=== PATIENT | male | born 1965 | race Caucasian/White ===

== ENCOUNTER 2017-06-03 11:57 | Emergency (ER) | payer MEDICAID, OTHER ==
[~2017-06-03] VITALS: Ht 167.6 cm; Wt 71.3 kg
[~2017-06-03 11:57] MED LIST: AMOX500C25 PO; IBUP-2213 PO
[2017-06-03 12:00] VITALS: BP 154/99
--- NOTE | 2017-06-03 12:04 | NUR ---
PT AMBULATED TO BED 1.
--- NOTE | 2017-06-03 12:10 | NUR ---
PATIENT PRESENTS TO ED WITH 51M BIB SELF C/O LOWER BACK PAIN X 2016, WORSENING X 9 DAYS. PT STATES NO RECENT TRAUMA OR INJURY TO BACK, BUT PT STATES HE "HELPED A FRIEND LIFT A CAMPER SHELL". HX: PT DENIES RX: PT DENIES; DENIES N/V/D; SKIN IS PINK/WARM/DRY; AAOX4 WITH EVEN AND STEADY GAIT; LUNGS CLEAR BL; HR EVEN AND REGULAR; PT DENIES ANY FEVER, CP, SOB, OR COUGH AT THIS TIME; PATIENT STATES PAIN OF 8/10 AT THIS TIME; VSS; PATIENT POSITIONED FOR COMFORT; HOB ELEVATED; BEDRAILS UP X2; BED DOWN. ER MD MADE AWARE OF PT STATUS.
--- NOTE | 2017-06-03 12:24 | NUR ---
DR BARROSO EVALUATING AAO PT AT BEDSIDE
[2017-06-03] MEDS ORDERED: KETOROLAC 60 MG/2 ML VIAL IM ONE (12:35)
[2017-06-03 12:55] VITALS: BP 148/96
--- NOTE | 2017-06-03 12:55 | NUR ---
Patient discharged with v/s stable. Written and verbal after care instructions given and explained. Patient alert, oriented and verbalized understanding of instructions. Ambulatory with steady gait. All questions addressed prior to discharge. ID band removed. Patient advised to follow up with PMD. Rx of ROBAXIN, MOTRIN given. Patient educated on indication of medication including possible reaction and side effects. Opportunity to ask questions provided and answered.
== END 2017-06-03 12:55 | disposition home or self-care (01) ==
LOC: MED 11:57
DX: M54.5 Low back pain (principal)
CPT/HCPCS: 96372; 99283; J1885

== ENCOUNTER 2018-03-05 11:26 | Emergency (ER) | payer OTHER ==
[~2018-03-05] VITALS: Ht 170.2 cm; Wt 71.4 kg
--- NOTE | 2018-03-05 11:33 | NUR ---
PT AMBULATES TO BED 3
[2018-03-05 11:34] VITALS: BP 143/102
--- NOTE | 2018-03-05 11:41 | NUR ---
PATIENT PRESENTS TO ED W/ C/O HIGH BP AND INCREASE HEART RATE; UPON ARRIVAL TO ER BP OF 146/92 HR OF 104. DENIES CP/SOB/[place]/DIZZINESS; SKIN IS PINK/WARM/DRY; AAOX4 WITH EVEN AND STEADY GAIT; PATIENT POSITIONED FOR COMFORT; HOB ELEVATED; BEDRAILS UP X2; BED DOWN. ER MD MADE AWARE OF PT STATUS.
--- NOTE | 2018-03-05 11:55 | NUR ---
Patient being evaluated by physician at bedside.
[2018-03-05] MEDS ORDERED: NACL 0.9% 1,000 ML IV SCH (11:57)
[2018-03-05] MEDS ORDERED: LORazepam 2 MG/ML VIAL IVP ONE (12:00)
[2018-03-05] MEDS ORDERED: LORazepam 2 MG/ML VIAL ONE (12:15)
[2018-03-05 12:24] LABS: BASOPHILS % (AUTO) 0.4 % (0.0-2.0); EOSINOPHILS # (AUTO) 0.1 K/uL (0-0.4); EOSINOPHILS % (AUTO) 0.9 % (0.0-4.0); HEMATOCRIT 48.9 % (36-52); HEMOGLOBIN 16.7 g/dL (12.0-18.0); LYMPHOCYTES # (AUTO) 1.9 K/uL (2.0-11.5); LYMPHOCYTES % (AUTO) 25.1 % (20.5-51.1); MEAN CORPUSCULAR HEMOGLOBIN 31 pg (27-31); MEAN CORPUSCULAR HGB CONC 34 g/dL (33-37); MEAN CORPUSCULAR VOLUME 91.7 fL (80-94); MONOCYTES # (AUTO) 0.6 K/uL (0.8-1.0); MONOCYTES % (AUTO) 7.3 % (1.7-9.3); NEUTROPHILS # (AUTO) 5.1 K/uL (1.8-7.7); NEUTROPHILS % (AUTO) 66.3 % (42.2-75.2); PLATELET COUNT (AUTO) 232 K/uL (140-450); RED BLOOD CELL COUNT(AUTO) 5.34 MIL/uL (4.20-6.10); RED CELL DISTRIBUTION WIDTH 12.8 % (11.6-13.7); WHITE BLOOD COUNT (AUTO) 7.7 K/uL (4.8-10.8)
--- NOTE | 2018-03-05 12:47 | NUR ---
XRAY AT BEDSIDE
--- NOTE | 2018-03-05 12:48 | NUR ---
xray at bedside.
[2018-03-05 12:57] LABS: ALBUMIN 3.4 g/dL (3.4-5.0); ANION GAP 11.9 (8-16); CARBON DIOXIDE 27.7 mmol/L (21-32); CREATININE 1.1 mg/dL (0.7-1.3); POTASSIUM 3.6 mmol/L (3.5-5.1); TOTAL BILIRUBIN 0.3 mg/dL (0.0-1.0)
[2018-03-05 12:58] LABS: PROTHROMBIN TIME 9.8 secs (10.8-13.4)
[2018-03-05 14:10] VITALS: BP 135/75
--- NOTE | 2018-03-05 14:10 | NUR ---
Patient discharged with v/s stable. Written and verbal after care instructions given and explained. Patient alert, oriented and verbalized understanding of instructions. Ambulatory with steady gait. All questions addressed prior to discharge. ID band removed. Patient advised to follow up with PMD. Opportunity to ask questions provided and answered.
== END 2018-03-05 14:10 | disposition home or self-care (01) ==
LOC: MED 11:26
DX: I10 Essential (primary) hypertension (principal); R11.0 Nausea; Z88.6 Allergy status to analgesic agent; Z88.1 Allergy status to other antibiotic agents
CPT/HCPCS: 36415; 71045; 80053; 83880; 84484; 85025; 85610; 85730; 93005; 96374; 99285; J2060; 96372

== ENCOUNTER 2018-06-17 14:01 | Emergency (ER) | payer OTHER ==
[~2018-06-17] VITALS: Ht 170.2 cm; Wt 72.8 kg
[2018-06-17 14:03] VITALS: BP 130/93
[2018-06-17] MEDS ORDERED: DEXAMETHASONE 10 MG/ML VIAL IM ONE (15:25)
[2018-06-17] MEDS ORDERED: ALBUTEROL SULFATE/IPRATROPIU 3 ML SOL IH ONE (15:25)
[2018-06-17] MEDS ORDERED: cefTRIAXone 1,000 MG in LIDOCAINE 1% ***ER ONLY *** 2.1 ML IM ONE (15:25)
[2018-06-17] MEDS ORDERED: LEVOFLOXACIN 500 MG TAB PO ONE (15:25)
[2018-06-17] MEDS ORDERED: cefTRIAXone 1,000 MG VIAL ONE (15:49)
[2018-06-17] MEDS ORDERED: LIDOCAINE MPF 1% 5mL VIAL ONE (15:50)
[2018-06-17 19:28] VITALS: BP 135/89
== END 2018-06-17 19:28 | disposition home or self-care (01) ==
LOC: MED 14:01
DX: J40 Bronchitis, not specified as acute or chronic (principal); J06.9 Acute upper respiratory infection, unspecified; I10 Essential (primary) hypertension; F17.200 Nicotine dependence, unspecified, uncomplicated; Z79.899 Other long term (current) drug therapy
CPT/HCPCS: 71045; 94640; 96372; 99283; J0696; J1100; J2001; J7620; Q0092

== ENCOUNTER 2018-10-01 10:57 | Emergency (ER) | payer OTHER ==
[~2018-10-01] VITALS: Ht 167.6 cm; Wt 70.8 kg
[2018-10-01 11:08] VITALS: BP 126/85
--- NOTE | 2018-10-01 11:14 | NUR ---
PATIENT AMBULATED TO BED 8
--- NOTE | 2018-10-01 11:15 | NUR ---
BIB SELF. AAO X4 PRESENTS FOR WOUND CHECK S/P SKIN TAG REMOVAL NEAR L EYE ON WEDNESDAY BY [employer] LINE [employer]ER. PT HAS LIGHT GREEN DRAINAGE NOTED TO L EYE. DENIES PAIN, BLURRED VISION. AFEBRILE. HOB UP. BED SIDE RAILS UP X1. ON LOW BED POSITION, LOCKED. ER MADE AWARE OF PT STATUS.
[2018-10-01 12:10] VITALS: BP 130/86
--- NOTE | 2018-10-01 12:11 | NUR ---
Patient discharged with v/s stable. Written and verbal after care instructions given and explained. Patient alert, oriented and verbalized understanding of instructions. Ambulatory with steady gait. All questions addressed prior to discharge. ID band removed. Patient advised to follow up with PMD. Rx of BLEPH 10 & BACTRIM given. Patient educated on indication of medication including possible reaction and side effects. Opportunity to ask questions provided and answered.
== END 2018-10-01 11:14 | disposition home or self-care (01) ==
LOC: MED 10:57
DX: H00.036 Abscess of eyelid left eye, unspecified eyelid (principal); I10 Essential (primary) hypertension; Z88.1 Allergy status to other antibiotic agents
CPT/HCPCS: 99283

== ENCOUNTER 2018-10-21 12:40 | Emergency (ER) | payer OTHER ==
[~2018-10-21] VITALS: Ht 170.2 cm; Wt 68.5 kg
[2018-10-21 13:04] VITALS: BP 110/76
--- NOTE | 2018-10-21 13:40 | NUR ---
PATIENT PRESENTS TO ED WITH C/O LLQ PAIN X 4-5 WEEKS. PT STATES PAIN RADIATES TO LT LOWER BACK. DENIES NAUSEA/VOMITING/ FEVER. +DIARRHEA. AFEBRILE AT THIS TIME. PT DENIES ANY URINARY ISSUES. PATIENT STATES PAIN OF 5/10 AT THIS TIME; VSS; PATIENT POSITIONED FOR COMFORT. BEDRAILS UP X1; BED DOWN. ER MD TO EVALUATE PT.
[2018-10-21] MEDS ORDERED: NACL 0.9% 1,000 ML IV ONE (14:04)
[2018-10-21] MEDS ORDERED: NACL 0.9% 1,000 ML IV SCH (14:04)
[2018-10-21] MEDS ORDERED: KETOROLAC 30 MG/ML VIAL IVP ONE (14:05)
[2018-10-21] MEDS ORDERED: MORPHINE SULFATE 2 MG/ML SYR IVP ONE (14:05)
[2018-10-21 14:27] LABS: APPEARANCE,URINE CLEAR (CLEAR); BILIRUBIN,URINE 1+ (NEGATIVE); BLOOD, URINE NEGATIVE (NEGATIVE); COLOR,URINE YELLOW (YELLOW); LEUKOCYTE ESTERASE ,URINE NEGATIVE (NEGATIVE); NITRITE, URINE NEGATIVE (NEGATIVE); UGLUCOSE NEGATIVE (NEGATIVE)
[2018-10-21 14:28] LABS: BASOPHILS % (AUTO) 0.6 % (0.0-2.0); EOSINOPHILS # (AUTO) 0.1 K/uL (0-0.4); HEMATOCRIT 44.8 % (36-52); HEMOGLOBIN 15.2 g/dL (12.0-18.0); LYMPHOCYTES # (AUTO) 1.9 K/uL (2.0-11.5); LYMPHOCYTES % (AUTO) 23.2 % (20.5-51.1); MEAN CORPUSCULAR HEMOGLOBIN 32 pg (27-31); MEAN CORPUSCULAR HGB CONC 34 g/dL (33-37); MEAN CORPUSCULAR VOLUME 92.9 fL (80-94); MONOCYTES # (AUTO) 0.5 K/uL (0.8-1.0); MONOCYTES % (AUTO) 6.2 % (1.7-9.3); NEUTROPHILS # (AUTO) 5.6 K/uL (1.8-7.7); PLATELET COUNT (AUTO) 243 K/uL (140-450); RED BLOOD CELL COUNT(AUTO) 4.82 MIL/uL (4.20-6.10); RED CELL DISTRIBUTION WIDTH 13.6 % (11.6-13.7); WHITE BLOOD COUNT (AUTO) 8.1 K/uL (4.8-10.8)
[2018-10-21 14:47] LABS: ALBUMIN 3.1 g/dL (3.4-5.0); ANION GAP 10.4 (8-16); CARBON DIOXIDE 26.4 mmol/L (21-32); POTASSIUM 3.8 mmol/L (3.5-5.1); TOTAL BILIRUBIN 0.3 mg/dL (0.0-1.0)
--- NOTE | 2018-10-21 15:00 | NUR ---
PT TRANSPORTED TO CT VIA W/C BY RESOURCE ANALYST
--- NOTE | 2018-10-21 15:12 | NUR ---
PT BACK FROM CT SCAN.
[2018-10-21] MEDS ORDERED: GABA300C PO (16:43)
[2018-10-21] MEDS ORDERED: ATOR10TA51 PO (16:43)
[2018-10-21] MEDS ORDERED: ATEN50TA8 PO (16:43)
--- NOTE | 2018-10-21 16:43 | NUR ---
Dr. Hall Oh evaluating patient at bedside.
[2018-10-21] MEDS ORDERED: DEXT 5% /NACL 0.9% 1,000 ML IV SCH (16:50)
[2018-10-21] MEDS ORDERED: ONDANSETRON 4 MG/2 ML VIAL IVP PRN (16:50)
[2018-10-21] MEDS ORDERED: MORPHINE SULFATE 2 MG/ML SYR IVP PRN (16:50)
--- NOTE | 2018-10-21 17:26 | NUR ---
Dr. Boswell re-evaluating patient at bedside.
[2018-10-21 17:42] VITALS: BP 107/66
--- NOTE | 2018-10-21 17:43 | NUR ---
Patient discharged with v/s stable. Written and verbal after care instructions given and explained. Patient alert, oriented and verbalized understanding of instructions. Ambulatory with steady gait. All questions addressed prior to discharge. ID band removed. Patient advised to follow up with PMD. Rx of CIPRO given. Patient educated on indication of medication including possible reaction and side effects. Opportunity to ask questions provided and answered. PT STATES HE WALKED TO ER AND WILL BE WALKING HOME, PT AMBULATORY STEADY GAIT, AWAKE AND ALERT. PT ADVISED NOT TO DRIVE.
== END 2018-10-21 17:43 | disposition home or self-care (01) ==
LOC: MED 12:40
DX: K56.2 Volvulus (principal); I10 Essential (primary) hypertension; E78.00 Pure hypercholesterolemia, unspecified; Z79.899 Other long term (current) drug therapy; Z88.1 Allergy status to other antibiotic agents
CPT/HCPCS: 36415; 74176; 80053; 81003; 82150; 83690; 84484; 85025; 93005; 96374; 96375; 99284; J1885; J2270; J7030

== ENCOUNTER 2019-11-05 14:58 | Emergency (ER) | payer OTHER ==
[~2019-11-05] VITALS: Ht 167.6 cm; Wt 72.6 kg
[~2019-11-05 14:58] MED LIST changes: -AMOX500C25 PO; +ATEN50TA8 PO; +ATOR10TA51 PO; +GABA300C PO; -IBUP-2213 PO
[2019-11-05 15:07] VITALS: BP 122/82
--- NOTE | 2019-11-05 15:10 | NUR ---
PT AMBULATED TO ER BED 01
--- NOTE | 2019-11-05 15:15 | NUR ---
c/o r groin pain 12/31 x 1 day. pt states it feels like it is having a spasm. pt reports this same type of pain "many years ago", but hasnt had this happen in a long time. no obvious injury/deformity noted to the leg, no redness/warmth noted.
--- NOTE | 2019-11-05 15:30 | NUR ---
kerry ochoa at bedside
--- NOTE | 2019-11-05 16:00 | NUR ---
pt sitting in chair at bedside, no new needs at this time
[2019-11-05 16:46] VITALS: BP 122/87
--- NOTE | 2019-11-05 16:47 | NUR ---
Patient discharged with v/s stable. Written and verbal after care instructions given and explained. Patient alert, oriented and verbalized understanding of instructions. Ambulatory with steady gait. All questions addressed prior to discharge. ID band removed. Patient advised to follow up with PMD. Rx of tramadol & flexeril given. Patient educated on indication of medication including possible reaction and side effects. Opportunity to ask questions provided and answered.
== END 2019-11-05 16:47 | disposition home or self-care (01) ==
LOC: MED 14:58
DX: S39.011A Strain of muscle, fascia and tendon of abdomen, initial encounter (principal); I10 Essential (primary) hypertension; F17.200 Nicotine dependence, unspecified, uncomplicated; Z88.1 Allergy status to other antibiotic agents; Z79.899 Other long term (current) drug therapy; X58.XXXA Exposure to other specified factors, initial encounter; Y93.89 Activity, other specified; Y92.89 Other specified places as the place of occurrence of the external cause; Y99.8 Other external cause status
CPT/HCPCS: 81002; 99283

== ENCOUNTER 2020-05-08 10:04 | Emergency (ER) | payer OTHER ==
[~2020-05-08] VITALS: Ht 167.6 cm; Wt 73.0 kg
[2020-05-08 10:41] VITALS: BP 121/66
[2020-05-08] MEDS ORDERED: KETOROLAC 30 MG/ML VIAL IM STA (10:44)
[2020-05-08] MEDS ORDERED: methocarbamoL 500 MG TAB PO STA (10:44)
--- NOTE | 2020-05-08 10:44 | NUR ---
PT BEING EVALUATED IN TRIAGE BY DR. LAM.
[2020-05-08] MEDS ORDERED: LORazepam 1 MG TAB PO ONE (10:45)
[2020-05-08 11:29] VITALS: BP 121/66
--- NOTE | 2020-05-08 11:29 | NUR ---
Patient discharged with v/s stable. Written and verbal after care instructions given and explained. Patient alert, oriented and verbalized understanding of instructions. Ambulatory with steady gait. All questions addressed prior to discharge. ID band removed. Patient advised to follow up with PMD. Rx of Robaxin 500mg and Medrol Dose Pack given. Patient educated on indication of medication including possible reaction and side effects. Opportunity to ask questions provided and answered.
== END 2020-05-08 11:29 | disposition home or self-care (01) ==
LOC: MED 10:04
DX: M54.40 Lumbago with sciatica, unspecified side (principal); I10 Essential (primary) hypertension
CPT/HCPCS: 96372; 99283; J1885

== ENCOUNTER 2020-05-12 09:28 | Emergency (ER) | payer OTHER ==
[~2020-05-12] VITALS: Ht 167.6 cm; Wt 73.0 kg
[2020-05-12 09:34] VITALS: BP 160/95
--- NOTE | 2020-05-12 09:39 | NUR ---
PATIENT TRIAGED. WAITING IN LOBBY.
[2020-05-12 10:46] VITALS: BP 160/95
== END 2020-05-12 10:47 | disposition home or self-care (01) ==
LOC: MED 09:28
DX: M54.5 Low back pain (principal); G89.29 Other chronic pain; I10 Essential (primary) hypertension; E78.5 Hyperlipidemia, unspecified; Z79.899 Other long term (current) drug therapy; Z88.1 Allergy status to other antibiotic agents
CPT/HCPCS: 99283

== ENCOUNTER 2022-07-01 12:06 | Emergency (ER) | payer OTHER ==
[~2022-07-01] VITALS: Ht 167.6 cm; Wt 66.7 kg
[2022-07-01 12:13] VITALS: BP 151/98
--- NOTE | 2022-07-01 13:28 | NUR ---
pt ambulated to bed 09
--- NOTE | 2022-07-01 13:35 | NUR ---
DR HOPE AT BEDSIDE.
[2022-07-01] MEDS ORDERED: KETOROLAC 15 MG/ML VIAL IVP ONE (13:40)
--- NOTE | 2022-07-01 13:57 | NUR ---
Pt taken to CT
--- NOTE | 2022-07-01 13:59 | NUR ---
Assumed care of pt from PABLO Vega
--- NOTE | 2022-07-01 14:01 | NUR ---
56M PRESENTS TO ED WITH C/O LLQ PAIN SINCE LAST NIGHT. DENIES N/V/D/SOB/CP PMH:HTN ALLERGIES:DENIES
--- NOTE | 2022-07-01 14:10 | NUR ---
PT RETURNED FROM cT. gIVEN PAIN MEDICATION FOR 6/10 PAIN IN ABDOMEN. NON-RADIATING. NON-PHARM INTERVENTIONS INEFFECTIVE
[2022-07-01 14:24] LABS: BASOPHILS % (AUTO) 0.3 % (0.0-2.0); EOSINOPHILS % (AUTO) 0.2 % (0.0-4.0); HEMATOCRIT 46.4 % (36-52); HEMOGLOBIN 15.9 g/dL (12.0-18.0); LYMPHOCYTES # (AUTO) 1.5 K/uL (2.0-11.5); LYMPHOCYTES % (AUTO) 9.9 % (20.5-51.1); MEAN CORPUSCULAR HEMOGLOBIN 33 pg (27-31); MEAN CORPUSCULAR HGB CONC 34 g/dL (33-37); MEAN CORPUSCULAR VOLUME 94.9 fL (80-94); MONOCYTES # (AUTO) 1.1 K/uL (0.8-1.0); MONOCYTES % (AUTO) 7.4 % (1.7-9.3); NEUTROPHILS # (AUTO) 12.2 K/uL (1.8-7.7); NEUTROPHILS % (AUTO) 82.2 % (42.2-75.2); PLATELET COUNT (AUTO) 261 K/uL (140-450); RED BLOOD CELL COUNT(AUTO) 4.89 MIL/uL (4.20-6.10); RED CELL DISTRIBUTION WIDTH 13.9 % (11.6-13.7); WHITE BLOOD COUNT (AUTO) 14.8 K/uL (4.8-10.8)
[2022-07-01 14:47] LABS: ALBUMIN 3.8 g/dL (3.4-5.0); ANION GAP 15.1 (8-16); CARBON DIOXIDE 25.7 mmol/L (21-32); CREATININE 1.1 mg/dL (0.6-1.3); POTASSIUM 3.8 mmol/L (3.5-5.1); TOTAL BILIRUBIN 0.6 mg/dL (0.0-1.0)
[2022-07-01 14:49] LABS: APPEARANCE,URINE CLEAR (CLEAR); BILIRUBIN,URINE NEGATIVE (NEGATIVE); BLOOD, URINE MODERATE (NEGATIVE); COLOR,URINE YELLOW (YELLOW); LEUKOCYTE ESTERASE ,URINE NEGATIVE (NEGATIVE); NITRITE, URINE NEGATIVE (NEGATIVE); UGLUCOSE NEGATIVE (NEGATIVE)
[2022-07-01 15:06] LABS: RBC,URINE 0-5 /HPF (0-5); WBC,URINE 0-5 /HPF (0-5)
[2022-07-01 15:07] LABS: OTHER CASTS, URINE None Seen /LPF (None Seen)
[2022-07-01] MEDS ORDERED: ACET-8905 PO (15:15)
[2022-07-01] MEDS ORDERED: ONDA-188 PO (15:15)
[2022-07-01] MEDS ORDERED: TAMS0.4C96 PO (15:15)
[2022-07-01] MEDS ORDERED: IBUP-2213 PO (15:15)
[2022-07-01 15:28] VITALS: BP 147/95
--- NOTE | 2022-07-01 15:29 | NUR ---
Patient discharged with v/s stable. Written and verbal after care instructions given and explained. Patient alert, oriented and verbalized understanding of instructions. Ambulatory with steady gait. All questions addressed prior to discharge. ID band removed. Patient advised to follow up with PMD. Rx of Ibuprofen/flomax/zofran/norco given. Patient educated on indication of medication including possible reaction and side effects. Opportunity to ask questions provided and answered.
== END 2022-07-01 15:28 | disposition home or self-care (01) ==
LOC: MED 12:06
DX: I10 Essential (primary) hypertension (principal); F17.290 Nicotine dependence, other tobacco product, uncomplicated; R11.2 Nausea with vomiting, unspecified; R10.9 Unspecified abdominal pain; K21.9 Gastro-esophageal reflux disease without esophagitis; Z71.6 Tobacco abuse counseling; Z88.1 Allergy status to other antibiotic agents; Z79.899 Other long term (current) drug therapy
CPT/HCPCS: 36415; 74176; 80053; 81001; 85025; 96374; 99285; J1885; 81003; 99284

== ENCOUNTER 2022-10-19 11:14 | Emergency (ER) | payer OTHER ==
[~2022-10-19] VITALS: Ht 167.6 cm; Wt 66.7 kg
[~2022-10-19 11:14] MED LIST changes: +ACET-8905 PO; +IBUP-2213 PO; +ONDA-188 PO; +TAMS0.4C96 PO
[2022-10-19 11:24] VITALS: BP 125/90
--- NOTE | 2022-10-19 11:29 | NUR ---
pt ambulatory to bed 05
--- NOTE | 2022-10-19 11:42 | NUR ---
57YO M PRESENTS W/DIARRHEA AND NAUSEA X 5DAYS, INTERMITTENT ABD PAIN, PT STATES STOOL IS YELLOW IN COLOR W/ODOR, DENIES BLOODY STOOL, VOMITING, CHANGE IN DIET. SAFETY MAINTAINED. HX: HTN ALLERGIES: LEVOFLOXACIN
--- NOTE | 2022-10-19 12:00 | NUR ---
MD RINCON AT BEDSIDE FOR EVALUATION
[2022-10-19] MEDS ORDERED: IBUP-2213 PO (12:11)
[2022-10-19] MEDS ORDERED: SULF-59 PO (12:11)
[2022-10-19 12:24] VITALS: BP 121/84
--- NOTE | 2022-10-19 12:24 | NUR ---
Patient discharged with v/s stable. Written and verbal after care instructions given and explained. Patient alert, oriented and verbalized understanding of instructions. Ambulatory with steady gait. All questions addressed prior to discharge. ID band removed. Patient advised to follow up with PMD. Rx IBUPROFEN, BACTRIM of given. Opportunity to ask questions provided and answered.
--- NOTE | 2022-10-19 12:25 | NUR ---
The patient's care was reviewed and supervised by Silvia Chaves, RN, RN.
== END 2022-10-19 12:24 | disposition home or self-care (01) ==
LOC: MED 11:14
DX: R19.7 Diarrhea, unspecified (principal); R10.30 Lower abdominal pain, unspecified; R11.0 Nausea; K21.9 Gastro-esophageal reflux disease without esophagitis; I10 Essential (primary) hypertension; F17.200 Nicotine dependence, unspecified, uncomplicated; Z72.89 Other problems related to lifestyle; Z88.8 Allergy status to other drugs, medicaments and biological substances; Z79.899 Other long term (current) drug therapy
CPT/HCPCS: 99283

== ENCOUNTER 2023-05-08 14:49 | Emergency (ER) | payer OTHER ==
[~2023-05-08] VITALS: Ht 167.6 cm; Wt 70.8 kg
[~2023-05-08 14:49] MED LIST changes: +SULF-59 PO
[2023-05-08 15:14] VITALS: BP 117/79; PULSE 123; RESP 20; TEMP 97.8; O2SAT 100
[2023-05-08 15:39] LABS: BASOPHILS % (AUTO) 0.2 % (0.0-2.0); EOSINOPHILS % (AUTO) 0.1 % (0.0-4.0); HEMATOCRIT 47.2 % (36-52); HEMOGLOBIN 15.9 g/dL (12.0-18.0); LYMPHOCYTES # (AUTO) 1.1 K/uL (2.0-11.5); LYMPHOCYTES % (AUTO) 7.4 % (20.5-51.1); MEAN CORPUSCULAR HEMOGLOBIN 32 pg (27-31); MEAN CORPUSCULAR HGB CONC 34 g/dL (33-37); MEAN CORPUSCULAR VOLUME 94.5 fL (80-94); MONOCYTES # (AUTO) 0.8 K/uL (0.8-1.0); MONOCYTES % (AUTO) 5.5 % (1.7-9.3); NEUTROPHILS # (AUTO) 12.9 K/uL (1.8-7.7); NEUTROPHILS % (AUTO) 86.8 % (42.2-75.2); PLATELET COUNT (AUTO) 226 K/uL (140-450); RED BLOOD CELL COUNT(AUTO) 4.99 MIL/uL (4.20-6.10); RED CELL DISTRIBUTION WIDTH 13.8 % (11.6-13.7); WHITE BLOOD COUNT (AUTO) 14.9 K/uL (4.8-10.8)
[2023-05-08] MEDS ORDERED: ACETAMINOPHEN EXTRA STRENGTH 500 MG TAB PO ONE (15:40)
[2023-05-08] MEDS ORDERED: NACL 0.9% 1,000 ML IV ONE ×2 (15:40→17:30)
[2023-05-08 15:48] LABS: ANION GAP 16.9 (8-16); CARBON DIOXIDE 22.9 mmol/L (21-32); CREATININE 1.1 mg/dL (0.6-1.3); POTASSIUM 4.8 mmol/L (3.5-5.1)
[2023-05-08 15:54] LABS: ALBUMIN 3.5 g/dL (3.4-5.0); TOTAL BILIRUBIN 0.5 mg/dL (0.0-1.0); TOTAL PROTEIN, SERUM 7.1 g/dL (6.4-8.2)
[2023-05-08] MEDS ORDERED: LIDOCAINE 5% 1 EA PATCH TP ONE (16:40)
[2023-05-08] MEDS ORDERED: LIDOCAINE MPF 1% 10 MG/ML VIAL INJ ONE (16:40)
[2023-05-08] MEDS ORDERED: ACETAMINOPHEN EXTRA STRENGTH 500 MG TAB ONE (16:46)
[2023-05-08] MEDS ORDERED: ACET-10509 PO (18:08)
[2023-05-08 18:50] VITALS: BP 117/79; PULSE 107; RESP 20; TEMP 97.8; O2SAT 100
== END 2023-05-08 18:51 | disposition home or self-care (01) ==
LOC: MED 14:49
DX: S02.2XXA Fracture of nasal bones, initial encounter for closed fracture (principal); S00.03XA Contusion of scalp, initial encounter; S80.212A Abrasion, left knee, initial encounter; R55 Syncope and collapse; E86.0 Dehydration; R42 Dizziness and giddiness; M25.511 Pain in right shoulder; M79.642 Pain in left hand; M54.2 Cervicalgia; K21.9 Gastro-esophageal reflux disease without esophagitis; E78.5 Hyperlipidemia, unspecified; I10 Essential (primary) hypertension; Z79.899 Other long term (current) drug therapy; Z79.1 Long term (current) use of non-steroidal anti-inflammatories (NSAID); Z79.2 Long term (current) use of antibiotics; Z88.1 Allergy status to other antibiotic agents; W10.8XXA Fall (on) (from) other stairs and steps, initial encounter; Y92.89 Other specified places as the place of occurrence of the external cause; Y93.89 Activity, other specified; Y99.8 Other external cause status
CPT/HCPCS: 12013; 36415; 70450; 70486; 71045; 72125; 80053; 83880; 84484; 85025; 93005; 96360; 96361; 99285; J2001; J7030

== ENCOUNTER 2023-08-30 08:58 | Emergency (ER) | payer OTHER ==
[~2023-08-30] VITALS: Ht 167.6 cm; Wt 69.9 kg
[~2023-08-30 08:58] MED LIST changes: +ACET-10509 PO
[2023-08-30 09:01] VITALS: BP 163/87; PULSE 78; RESP 20; TEMP 96.3; O2SAT 98
[2023-08-30 10:52] LABS: BASOPHILS % (AUTO) 0.3 % (0.0-2.0); EOSINOPHILS # (AUTO) 0.1 K/uL (0-0.4); EOSINOPHILS % (AUTO) 0.6 % (0.0-4.0); HEMATOCRIT 53.1 % (36-52); HEMOGLOBIN 18.4 g/dL (12.0-18.0); LYMPHOCYTES # (AUTO) 1.8 K/uL (2.0-11.5); MEAN CORPUSCULAR HEMOGLOBIN 33 pg (27-31); MEAN CORPUSCULAR HGB CONC 35 g/dL (33-37); MEAN CORPUSCULAR VOLUME 94.3 fL (80-94); MONOCYTES # (AUTO) 0.8 K/uL (0.8-1.0); NEUTROPHILS # (AUTO) 10.2 K/uL (1.8-7.7); NEUTROPHILS % (AUTO) 79.1 % (42.2-75.2); PLATELET COUNT (AUTO) 153 K/uL (140-450); RED BLOOD CELL COUNT(AUTO) 5.63 MIL/uL (4.20-6.10); RED CELL DISTRIBUTION WIDTH 13.6 % (11.6-13.7); WHITE BLOOD COUNT (AUTO) 12.9 K/uL (4.8-10.8)
[2023-08-30 11:03] LABS: ANION GAP 13.8 (8-16); CALCIUM 8.9 mg/dL (8.5-10.1); CREATININE 0.9 mg/dL (0.6-1.3); POTASSIUM 4.8 mmol/L (3.5-5.1)
[2023-08-30 11:08] LABS: ALBUMIN 3.4 g/dL (3.4-5.0); BILIRUBIN,DIRECT 0.1 mg/dL (0.0-0.3); TOTAL BILIRUBIN 0.5 mg/dL (0.0-1.0); TOTAL PROTEIN, SERUM 7.4 g/dL (6.4-8.2)
[2023-08-30] MEDS: NACL 0.9% 1,000 ML IV SCH (11:15)
[2023-08-30] MEDS ORDERED: KETOROLAC 30 MG/ML VIAL ONE (11:16)
[2023-08-30] MEDS: KETOROLAC 30 MG/ML VIAL IVP ONE (11:21)
[2023-08-30 11:28] LABS: APPEARANCE,URINE CLEAR (CLEAR); BILIRUBIN,URINE NEGATIVE (NEGATIVE); BLOOD, URINE NEGATIVE (NEGATIVE); COLOR,URINE YELLOW (YELLOW); LEUKOCYTE ESTERASE ,URINE NEGATIVE (NEGATIVE); NITRITE, URINE NEGATIVE (NEGATIVE); PH,URINE 6.5 (5.0-9.0); PROTEIN,URINE NEGATIVE (NEGATIVE); UGLUCOSE NEGATIVE (NEGATIVE); UROBILINOGEN,URINE 0.2 EU/dL (0.2 - 1)
[2023-08-30] MEDS ORDERED: DOXY-690 PO (12:44)
[2023-08-30] MEDS ORDERED: CEPH-588 PO (12:44)
[2023-08-30] MEDS ORDERED: IBUP-2213 PO (12:44)
[2023-08-30 12:56] VITALS: BP 149/87; PULSE 85; RESP 18; TEMP 97.8; O2SAT 99
== END 2023-08-30 12:52 | disposition home or self-care (01) ==
LOC: MED 08:58
DX: L02.211 Cutaneous abscess of abdominal wall (principal); K21.9 Gastro-esophageal reflux disease without esophagitis; I10 Essential (primary) hypertension; Z79.899 Other long term (current) drug therapy
CPT/HCPCS: 36415; 74174; 80048; 80076; 81003; 83690; 85025; 96361; 96374; 99285; J1885; J7030; Q9967